=== PATIENT | male | born 1955 | race Caucasian/White ===

== ENCOUNTER → 2024-01-05 18:58 | Outpatient (REF) | payer MEDICARE, OTHER, SELFPAY | LOC: MRI 3T 18:58 | PROVIDERS: ATTENDING PHYSICIAN Surgery; FAMILY PHYSICIAN Family Medicine | DX: R97.20 Elevated prostate specific antigen [PSA] (principal) | CPT/HCPCS: 72197; A9575 ==

== ENCOUNTER 2024-03-06 06:32 | Day surgery (SDC) | payer MEDICARE, OTHER, SELFPAY ==
[2024-03-01 06:43] VITALS: BMI 29.1
[2024-03-06] VITALS (14 sets, daily range): BP systolic 112–134; BP diastolic 65–81; BMI 29.1
[2024-03-06] MEDS: NORMOSOL-R 1000 IV (11:10)
--- NOTE | 2024-03-06 13:38 | W.IMMPOSTOP ---
Surgical Immed Post Op Note
-
Primary Surgeon: David
Pre-op Diagnosis: BPH with GANDHI
Post-op Diagnosis: Same
Procedure Performed: plasma button vaporization TURP
Anesthesia Type: LMA
Fluids: Crystalloids
Specimen / Cultures: None/None
Estimated Blood Loss: Negligible
Drains: 22Fr 3-way catheter (30 cc in balloon)
Complications: None
Operative Findings:
1. 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
2 No undermining of bladder neck, no involvement of bilateral UOs, verumontanum, external urethral sphincter.
3. 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
4. Excellent hemostasis in no flow low pressure state.
Spouse (Sabina) updated post-op.
Admit for PSR w/ [facility] for routine post-TURP care.
[2024-03-06] MEDS: DETROL LA 4 MG PO (14:01)
[2024-03-06] MEDS: DILAUDID 0.25 MG IV (14:01)
[2024-03-06] MEDS: VALIUM INJECTION 5 MG IV (14:13)
[2024-03-06] MEDS: Pyridium 200 MG PO (14:22)
[2024-03-06] MEDS: DILAUDID 0.5 MG IV ×3 (14:35→21:28)
[2024-03-06] MEDS: DITROPAN 5 MG PO (17:01)
[2024-03-07 03:40] VITALS: BP 122/57
[2024-03-07 03:59] VITALS: BP 122/57
[2024-03-07 06:00] VITALS: BMI 28.8
[2024-03-07 06:05] VITALS: BMI 28.8
[2024-03-07 06:42] LABS: Hematocrit 39.2 % (39.0-52.0); Hemoglobin 13.2 g/dL (13.0-18.0); Mean Corp Hgb Conc. 33.7 g/dL (33.0-37.0); Mean Corpuscular Hgb 28.3 pg (27.0-31.0); Mean Corpuscular Volume 83.9 fL (80.0-94.0); Mean Platelet Volume 10.2 fL (7.4-10.4); Platelet Count 177 10^3/uL (130-400); Red Blood Cell Count 4.67 10^6/uL (4.70-6.10); Red Cell Dist. Width 13.4 % (11.5-14.5); White Blood Cell Count 8.5 10^3/uL (4.8-10.8)
[2024-03-07 07:07] LABS: Blood Urea Nitrogen 18 mg/dl (9-20); Calcium 9.2 mg/dl (8.4-10.2); Carbon Dioxide 26 mmol/L (22-30); Chloride 102 mmol/L (98-107); Estimated Creatinine Clearance 109 ml/min; Glucose 122 mg/dl (70-99); Potassium 4.9 mmol/L (3.5-5.1); Sodium 134 mmol/L (135-145); eGFR > 60.00
[2024-03-07 07:30] VITALS: BP 147/78
[2024-03-07] MEDS: FLOMAX 0.4 MG PO (08:42)
[2024-03-07 11:45] VITALS: BP 151/78
--- NOTE | 2024-03-07 12:32 | W.DS.TRANS ---
DC Summary - Employment Legal Assistant
-
Discharge Instructions:
Sleep Apnea Risk Intermediate
Discharge Diagnosis/Procedures BPH s/p button vaporization TURP
Diet Regular
Activity No strenuous activity
Additional Activity No strenuous activity, heavy lifting, or
exercise x7 days per Dr. Hernandez
Driving Restrictions As prior to admission
Bathing Restrictions None
Blood Work not applicable
Wound Care not applicable
Instructions:
Stand-Alone Forms:
Changes to Home Medications: No
Discharge Medications:
DC Medications w/original date entered in [employer]
phenazopyridine 200 mg tablet (Pyridium) 200 mg PO [id number] PRN dysuria 4 days #8 tabs 03/07/24
sulfamethoxazole 800 mg-trimethoprim 160 mg tablet (Bactrim DS) 1 tab PO BID 5 days #10 tabs 03/07/24
Home Medication Changes
Pending Results: No
--- NOTE | 2024-03-07 12:32 | W.PN.URO.CBU ---
Today's Communication / Plan
-
D/c home - post-op care and instructions reviewed w/ patient
eRx for Bactrim DS + Pyridium (prn) sent to [facility]
F/U for post-op visit will be scheduled by office in 4 weeks
D/w patient.
D/w RN.
Assessment / Plan
-
BPH with LUTS
03/06/24: s/p button vaporization TURP
CBC/BMP WNL
Successful TOV this AM
Post-op milestones achieved s/p TURP
Diagnosis
-
Date of Service: March 07, 2024
-
Patient Diagnosis:
BPH w/ LUTS
Post Op Day:
03/06/24: s/p button vaporization TURP
Subjective
-
Voided x3.
Mild discomfort at urethra during voiding.
[place]-tinged urine w/o clots.
Objective
-
Vital Signs
Temp Pulse Resp BP Pulse Ox
97.8 F 85 16 151/78 100
03/07/24 11:45 03/07/24 11:45 03/07/24 11:45 03/07/24 11:45 03/07/24 11:45
Intake and Output
03/06/24 03/07/24 03/08/24
06:59 06:59 06:59
Intake Total 1540 / 1540
Output Total 3900 / 3900
Balance -2360 / -2360
Intake:
Oral fluids 1440 / 1440
IV fluids (Total) 100 / 100
normosol 100 / 100
Output:
Urine, Camacho 150 / 150
True Urine Output from [facility] 3750 / 3750
Laboratory Results
03/07/24 05:45
07/02/24 05:45
Physical Exam
-
General - well developed, well nourished, no acute distress
Abdomen - soft, non-tender, non-distended
Genitalia - normal
Skin - warm & dry with no rash
Neuro - AOx3, no motor deficits
Extremities - no clubbing, no cyanosis, no edema
Care Review
Data Reviewed
Discussed with: Nursing and Family
--- NOTE | 2024-03-07 12:45 | CM ---
Reviewed the chart notes and spoke with the patient and his spouse at the bedside. The patient resides with his spouse in a two story home with no steps to enter. The patient reports no DME/VN/SNF in past. The patient confirmed his pharmacy of
choice is the [facility]. CM continues to be available to patient/family and is monitoring medical plan for needs at discharge.
Plan: Discharge to home today with no needs. Patient's spouse will provide transportation.
== END 2024-03-07 13:10 | disposition home or self-care (01) ==
LOC: SDS 06:32
PROVIDERS: ATTENDING PHYSICIAN Surgery
DX: N40.1 Benign prostatic hyperplasia with lower urinary tract symptoms (principal); N13.8 Other obstructive and reflux uropathy
CPT/HCPCS: 52601; 80048; 85027

== ENCOUNTER 2024-10-08 12:51 | Emergency (ER) | payer MEDICARE, OTHER, SELFPAY ==
[2024-10-08 13:02] VITALS: BP 144/81
[2024-10-08 13:22] LABS: % Basophils 0.3 % (0-2); % Eosinophils 1.4 % (0-6); % Immature Granulocytes 0.2 % (0-0.5); % Lymphocytes 12.9 % (20.5-51.1); % Monocytes 10.7 % (1.7-9.3); % Neutrophils 74.5 % (42.2-75.2); Absolute Eosinophils 0.1 10^3/uL (0-0.7); Absolute Lymphocytes 0.8 10^3/uL (1.2-3.4); Absolute Monocytes 0.6 10^3/uL (0.1-0.6); Absolute Neutrophils 4.4 10^3/uL (1.4-6.5); Hematocrit 40.2 % (39.0-52.0); Hemoglobin 13.8 g/dL (13.0-18.0); Mean Corp Hgb Conc. 34.3 g/dL (33.0-37.0); Mean Corpuscular Hgb 29.1 pg (27.0-31.0); Mean Corpuscular Volume 84.8 fL (80.0-94.0); Mean Platelet Volume 9.5 fL (7.4-10.4); Nucleated Red Blood Cells % 0 % (-); Platelet Count 156 10^3/uL (130-400); Red Blood Cell Count 4.74 10^6/uL (4.70-6.10); White Blood Cell Count 5.9 10^3/uL (4.8-10.8)
[2024-10-08 13:40] LABS: ALT (SGPT) 18 U/L (0-50); AST (SGOT) 16 U/L (17-59); Albumin 4.7 g/dl (3.5-5.0); Alkaline Phosphatase 74 U/L (38-126); Blood Urea Nitrogen 24 mg/dl (9-20); Carbon Dioxide 25 mmol/L (22-30); Chloride 103 mmol/L (98-107); Glucose 100 mg/dl (70-99); Lipase 85 U/L (23-300); Potassium 4.2 mmol/L (3.5-5.1); Sodium 138 mmol/L (135-145); Total Bilirubin 0.8 mg/dl (0.2-1.3); eGFR > 60.00
--- NOTE | 2024-10-08 14:39 | EDRN ---
Lane TABOR in room w/ pt.
[2024-10-08 14:44] VITALS: BMI 28.3
--- NOTE | 2024-10-08 14:44 | ED.GENMED ---
History of Present Illness
<Jenaro Hinkle Jr., PA-C - Last Filed: 10/10/24 13:10>
General
Chief Complaint: Abdominal Pain
Source: patient
Exam Limitations: none
Time Seen by Provider: 10/08/24 14:35
Nursing documentation reviewed up to this point in time: agreed with
History of Present Illness
History of Present Illness:
69-year-old male presenting to the emergency department today with concerns of 2 weeks of worsening abdominal pain. Initially started with some vague abdominal pain as well as ongoing diarrhea of at least 5-6 episodes daily some nausea intermittent
vomiting but no vomiting today. Pain seems to be slightly worse to the right lower quadrant over the past few days as well. Went to urgent care that sent him in for assessment of right lower quadrant tenderness. Denies specific fevers. Has been
on multiple antibiotics recently due to sinus infections and ear infections. Currently is on Bactrim. Recently on cefuroxime
Past History
<Jenaro Hinkle Jr., PA-C - Last Filed: 10/10/24 13:10>
Past History
ED Past Medical History: None
ED Past Surgical History: Cholecystectomy and Orthopedic
Social History
Tobacco: Non-smoker
Alcohol: None
Drug: None
Personal:
Living: with family
Review of Systems
<Jenaro Hinkle Jr., PA-C - Last Filed: 10/10/24 13:10>
Review of Systems
Allergies reviewed?: Yes
All Other Systems: ROS reviewed and negative except as documented in HPI and ROS
Phy Exam
<Jenaro Hinkle Jr., PA-C - Last Filed: 10/10/24 13:10>
Physical Exam
Physical Exam:
GENERAL: Alert , in no apparent distress
EYE: pupils equal and reactive
NECK: Supple, no significant adenopathy.
ENT: o/p clr, mmm.
CARDIAC: Regular rate and rhythm .
LUNGS: Clear breath sounds bilaterally, no acute respiratory distress, no wheezes/rales/rhonchi
ABDOMEN: Right lower quadrant abdominal pain otherwise no focal pain throughout the remainder of the abdomen.
NEUROLOGICAL: Alert and oriented, no focal neuro deficits
SKIN: Warm and dry, skin intact.
MUSCULOSKELETAL: No edema, well perfused.
PSYCH: Normal and appropriate interaction.
Course
<Jenaro Hinkle Jr., PA-C - Last Filed: 10/10/24 13:10>
Orders/Labs/Results
Orders:
Orders
10/08/24 13:07
Electrocardiogram (*1) Urgent
Reason for Study: Abdominal Pain
EKG- Treatment ONCE
IV Insert/Care/Rem.- Treatment PRN
10/08/24 13:17
Complete Blood Count/With Diff Urgent
Comprehensive Metabolic Panel Urgent
Lipase Urgent
10/08/24 14:44
CT Abd/Pel (IV only)-DH only Urgent
Comment:
Reason For Exam: rlq pain, diarrhea
10/08/24 14:46
0.9% Sodium Chloride 1000 ml [Nss] 1,000 ml IV BOLUS
10/08/24 16:20
Lactic Acid Urgent
10/08/24 16:21
CDIFF [C difficile Antigen & Toxins] Urgent
CARLY Source: Feces/Stool
Specimen Description:
Date Specimen was Collected: 10/08/24
Time Specimen was Collected: 16:18
Stool Culture Urgent
CARLY Source: Feces/Stool
Specimen Description:
Date Specimen was Collected: 10/08/24
Time Specimen was Collected: 16:18
10/08/24 17:39
Ketorolac [Toradol] 15 mg IV NOW STA
Abnormal Lab Results
10/08/24
13:17
Absolute Lymphs (auto) 0.8 L 10^3/uL
(1.2-3.4)
Lymphocytes % 12.9 L %
(20.5-51.1)
Monocytes % 10.7 H %
(1.7-9.3)
BUN 24 H mg/dl
(9-20)
Glucose 100 H mg/dl
(70-99)
AST 16 L U/L
(17-59)
10/08/24 13:17
10/08/24 13:17
Vital Signs
Initial and Last Documented VS:
Initial Vital Signs
Temp Pulse Resp BP Pulse Ox
97.7 F 76 18 144/81 100
10/08/24 13:02 10/08/24 13:02 10/08/24 13:02 10/08/24 13:02 10/08/24 13:02
Last Documented Vital Signs
Temp Pulse Resp BP Pulse Ox
97.7 F 74 16 152/89 98
10/08/24 13:02 10/08/24 17:09 10/08/24 17:09 10/08/24 17:09 10/08/24 17:09
<Glenis Meraz PA-C - Last Filed: 10/08/24 19:45>
Orders/Labs/Results
Orders:
Orders
10/08/24 13:07
Electrocardiogram (*1) Urgent
Reason for Study: Abdominal Pain
EKG- Treatment ONCE
IV Insert/Care/Rem.- Treatment PRN
10/08/24 13:17
Complete Blood Count/With Diff Urgent
Comprehensive Metabolic Panel Urgent
Lipase Urgent
10/08/24 14:44
CT Abd/Pel (IV only)-DH only Urgent
Comment:
Reason For Exam: rlq pain, diarrhea
10/08/24 14:46
0.9% Sodium Chloride 1000 ml [Nss] 1,000 ml IV BOLUS
10/08/24 16:20
Lactic Acid Urgent
10/08/24 16:21
CDIFF [C difficile Antigen & Toxins] Urgent
CARLY Source: Feces/Stool
Specimen Description:
Date Specimen was Collected: 10/08/24
Time Specimen was Collected: 16:18
Stool Culture Urgent
CARLY Source: Feces/Stool
Specimen Description:
Date Specimen was Collected: 10/08/24
Time Specimen was Collected: 16:18
10/08/24 17:39
Ketorolac [Toradol] 15 mg IV NOW STA
Abnormal Lab Results
10/08/24
13:17
Absolute Lymphs (auto) 0.8 L 10^3/uL
(1.2-3.4)
Lymphocytes % 12.9 L %
(20.5-51.1)
Monocytes % 10.7 H %
(1.7-9.3)
BUN 24 H mg/dl
(9-20)
Glucose 100 H mg/dl
(70-99)
AST 16 L U/L
(17-59)
10/08/24 13:17
10/08/24 13:17
Vital Signs
Initial and Last Documented VS:
Initial Vital Signs
Temp Pulse Resp BP Pulse Ox
97.7 F 76 18 144/81 100
10/08/24 13:02 10/08/24 13:02 10/08/24 13:02 10/08/24 13:02 10/08/24 13:02
Last Documented Vital Signs
Temp Pulse Resp BP Pulse Ox
97.7 F 74 16 152/89 98
10/08/24 13:02 10/08/24 17:09 10/08/24 17:09 10/08/24 17:09 10/08/24 17:09
<Dexter German PA-C - Last Filed: 10/09/24 11:30>
Orders/Labs/Results
Orders:
Orders
10/08/24 13:07
Electrocardiogram (*1) Urgent
Reason for Study: Abdominal Pain
EKG- Treatment ONCE
IV Insert/Care/Rem.- Treatment PRN
10/08/24 13:17
Complete Blood Count/With Diff Urgent
Comprehensive Metabolic Panel Urgent
Lipase Urgent
10/08/24 14:44
CT Abd/Pel (IV only)-DH only Urgent
Comment:
Reason For Exam: rlq pain, diarrhea
10/08/24 14:46
0.9% Sodium Chloride 1000 ml [Nss] 1,000 ml IV BOLUS
10/08/24 16:20
Lactic Acid Urgent
10/08/24 16:21
CDIFF [C difficile Antigen & Toxins] Urgent
CARLY Source: Feces/Stool
Specimen Description:
Date Specimen was Collected: 10/08/24
Time Specimen was Collected: 16:18
Stool Culture Urgent
CARLY Source: Feces/Stool
Specimen Description:
Date Specimen was Collected: 10/08/24
Time Specimen was Collected: 16:18
10/08/24 17:39
Ketorolac [Toradol] 15 mg IV NOW STA
Abnormal Lab Results
10/08/24
13:17
Absolute Lymphs (auto) 0.8 L 10^3/uL
(1.2-3.4)
Lymphocytes % 12.9 L %
(20.5-51.1)
Monocytes % 10.7 H %
(1.7-9.3)
BUN 24 H mg/dl
(9-20)
Glucose 100 H mg/dl
(70-99)
AST 16 L U/L
(17-59)
10/08/24 13:17
10/08/24 13:17
Vital Signs
Initial and Last Documented VS:
Initial Vital Signs
Temp Pulse Resp BP Pulse Ox
97.7 F 76 18 144/81 100
10/08/24 13:02 10/08/24 13:02 10/08/24 13:02 10/08/24 13:02 10/08/24 13:02
Last Documented Vital Signs
Temp Pulse Resp BP Pulse Ox
97.7 F 74 16 152/89 98
10/08/24 13:02 10/08/24 17:09 10/08/24 17:09 10/08/24 17:09 10/08/24 17:09
<Jenaro Hinkle Jr., PA-C - Last Filed: 10/10/24 13:10>
MDM/Problems Addressed
MDM/Problems Addressed:
69-year-old male presenting to the emergency department today with concerns of mainly right lower quadrant abdominal pain at this point. Over the past few weeks has had some degree of abdominal pain and diarrhea some intermittent vomiting but none
currently has been able to tolerate by mouth. On arrival here slightly hypertensive otherwise vital signs are normal. Afebrile. Labs showing slight elevation of BUN to creatinine.
<Glenis Meraz PA-C - Last Filed: 10/08/24 19:45>
*Critical Care Note
Total Time (30-74mins, 75-104mins- exclusive of procedures): Not Applicable
<Glenis Meraz PA-C - Last Filed: 10/08/24 19:45>
Update Note
Update Note:
Update: Received patient in signout. CT report reviewed without any acute abnormalities noted although unable to exclude mild colitis/diverticulitis. No evidence of appendicitis. Patient was able to provide a stool sample although unfortunately
microbiology lab is closed for today�C. difficile test will result tomorrow. Findings on CT discussed at length with patient on reassessment. Given patient is afebrile with no leukocytosis and recent antibiotic use with concern for C.
difficile�will hold further antibiotics at this time. Patient was given a dose of Toradol and received a full liter of fluids in emergency department. Offered admission for persistent diarrhea/abdominal pain although patient feels he can manage
symptoms at home. I feel this is reasonable as patient is very well-appearing. Close return precautions discussed. He will follow-up with GI/primary care.
<Dexter German PA-C - Last Filed: 10/09/24 11:30>
Update Note
Update Note:
Update: Received patient in signout. CT report reviewed without any acute abnormalities noted although unable to exclude mild colitis/diverticulitis. No evidence of appendicitis. Patient was able to provide a stool sample although unfortunately
microbiology lab is closed for today�C. difficile test will result tomorrow. Findings on CT discussed at length with patient on reassessment. Given patient is afebrile with no leukocytosis and recent antibiotic use with concern for C.
difficile�armando hold further antibiotics at this time. Patient was given a dose of Toradol and received a full liter of fluids in emergency department. Offered admission for persistent diarrhea/abdominal pain although patient feels he can manage
symptoms at home. I feel this is reasonable as patient is very well-appearing. Close return precautions discussed. He will follow-up with GI/primary care.
10/09/2024 11:30 AM -patient's C. difficile test returned positive. I contacted the patient via telephone and discussed these results. Prescription for fidaxomicin 200 mg tablets twice daily x 10 days sent to pharmacy. Advised patient contact his
family doctor for close follow-up. Aware of return precautions to the ER.
ED Attending Note
<Jenaro Hinkle Jr., PA-C - Last Filed: 10/10/24 13:10>
-
Portions of this chart may have been created with voice recognition software.� Occasional wrong word or��sound alike� substitutions may have occurred due to the inherent limitations of voice recognition software.
Discharge Plan
Departure
Patient Disposition: Home (Routine Discharge)
Date of Disposition: 10/08/24
Time of Disposition: 18:39
Patient with high blood pressure during this ER visit?: Yes
Covid-19: Not Applicable
Discharge Problem:
Diarrhea, Abdominal pain
Instructions: Low-fiber diet, Clear Liquid Diet, Abdominal Pain
Prescriptions:
New
fidaxomicin 200 mg tablet
200 mg PO Q12H 10 Days Qty: 20 0RF
vancomycin [Vancocin] 125 mg capsule
125 mg PO QID 10 Days Qty: 40 0RF
No Action
sulfamethoxazole-trimethoprim [Bactrim DS] 800-160 mg tablet
1 tab PO BID 5 Days Qty: 10 0RF
phenazopyridine [Pyridium] 200 mg tablet
200 mg PO [id number] PRN (Reason: dysuria) 4 Days Qty: 8 0RF
Referrals:
Rl Graf MD [Family Provider] -
Eloina Olmos DO [Active] - Next open appointment
Activity Restrictions/Additional Instructions:
Return to the emergency department with any high fevers, severe abdominal pain, intractable nausea/vomiting, signs of severe dehydration, worsening of current symptoms, or any other concerns
-As discussed�we will contact you if your C. difficile test comes back positive.
-It is important to stay very well-hydrated. I recommend a clear liquid diet for the next 2 days and advance to low fiber.
-You can take OTC omeprazole for the next week or so to help improve symptoms. Take Tylenol as needed for pain
-Follow-up with GI/your primary care provider for further evaluation/management. You may need additional imaging/procedures
Monitor your symptoms closely and return to the emergency department w/ any acute worsening/new symptoms or any other concerns
Interventions
Interventions:
*Risk Screen - Suicide Last Done: 10/08/24 13:02
*General Assessment Last Done: 10/08/24 14:45
*Neglect/Abuse Screening Last Done: 10/08/24 13:02
ED- Fall Risk Assessment Last Done: 10/08/24 14:50
*ED COVID-19 Vaccine History Last Done: 10/08/24 14:45
*Nursing Disposition Last Done: 10/08/24 19:02
ND-Vyrurt-Omcxpqkkea Assessment Last Done: 10/08/24 14:50
Discharge Date and Time
Discharge Date/Time: 10/08/24 19:04
Print Language: MACEDONIAN
[2024-10-08 14:48] VITALS: BP 147/76
--- NOTE | 2024-10-08 14:50 | EDRN ---
Pt received a receptacle for stool spec w/ instructions at this time.
[2024-10-08] MEDS: NSS 1000 IV (15:08)
--- NOTE | 2024-10-08 16:08 | EDRN ---
Pt ambulating to BR to attempt stool spec at this time.
[2024-10-08 17:09] VITALS: BP 152/89
--- NOTE | 2024-10-08 17:29 | EDRN ---
Merced TABOR in room w /pt at this time.
[2024-10-08] MEDS: TORADOL 15 MG IV (18:08)
--- NOTE | 2024-10-08 18:35 | EDRN ---
Merced TABOR in room w/pt at this time.
== END 2024-10-08 19:04 | disposition home or self-care (01) ==
LOC: EMR 12:51
PROVIDERS: Emergency Medicine; Physician Assistant; EMERGENCY PHYSICIAN Student in an Organized Health Care Education/Training Program; FAMILY PHYSICIAN Family Medicine
DX: A04.72 Enterocolitis due to Clostridium difficile, not specified as recurrent (principal); Z90.49 Acquired absence of other specified parts of digestive tract
CPT/HCPCS: 96374; 96361; 99284; 74177; 80053; 83605; 83690; 85025; 87045; 87046; 87324; 87427; 87449; 93005; Q9967